=== PATIENT | male | born 1960 | race Caucasian/White ===

== ENCOUNTER 2022-01-15 10:55 | Outpatient (CLI) | payer OTHER, SELFPAY ==
[2022-01-15 14:06] LABS: Basophils Percent Auto 0.2 % (0.0-3.0); Hematocrit 42.1 % (37.0-53.0); Immature Granulocytes Pct Auto 0.2 %; Lymphocytes Percent Auto 9.8 % (20-44); Mean Corpuscular HGB Conc 33 gm/dL (32-36); Mean Corpuscular Hemoglobin 29 pg (26-34); Mean Corpuscular Volume 88 fL (80-100); Monocytes Percent Auto 7.1 % (0.0-11.0); Neutrophils Percent Auto 81.7 % (42.0-72.0); Platelet Count* 421 K/uL (140-440); Red Blood Count 4.78 m/uL (4.30-5.90); White Blood Count* 16.05 K/uL (4.50-11.00)
[2022-01-15 14:16] LABS: Slide Review Reflex No
== END 2022-01-15 10:56 | disposition home or self-care (01) ==
LOC: KYNREF 10:57
PROVIDERS: Visit Provider Nurse Practitioner Family
DX: R05.9 Cough, unspecified (principal)
CPT/HCPCS: 85025

== ENCOUNTER 2022-02-23 11:43 | Outpatient (CLI) | payer OTHER, SELFPAY ==
[2022-02-23 15:41] LABS: Albumin* 4.1 g/dL (3.3-5.0); Basophils Absolute Auto 0.04 K/uL (0.00-0.30); Basophils Percent Auto 0.6 % (0.0-3.0); Chloride* 108 mmol/L (96-114); Eosinophils Absolute Auto 0.25 K/uL (0.00-0.50); Eosinophils Percent Auto 3.8 % (0.0-7.0); Hematocrit 42.3 % (37.0-53.0); Hemoglobin* 14.2 gm/dL (13.5-17.5); Lymphocytes Absolute Auto 1.63 K/uL (0.90-2.90); Lymphocytes Percent Auto 25.1 % (20-44); Mean Corpuscular HGB Conc 34 gm/dL (32-36); Mean Corpuscular Hemoglobin 30 pg (26-34); Mean Corpuscular Volume 88 fL (80-100); Monocytes Percent Auto 7.7 % (0.0-11.0); Neutrophils Absolute Auto 4.08 K/uL (1.7-7.0); Neutrophils Percent Auto 62.8 % (42.0-72.0); Platelet Count* 313 K/uL (140-440); RDW Coefficient of Variation % 13.4 % (11.5-15.5); Red Blood Count 4.81 m/uL (4.30-5.90)
[2022-02-23 15:42] LABS: Potassium* 4.2 mmol/L (3.6-5.1); Sodium* 139 mmol/L (135-149)
[2022-02-23 15:44] LABS: Alkaline Phosphatase* 92 U/L (40-150); Aspartate Amino Transferase* 23 U/L (12-35); Bilirubin Total* 0.5 mg/dL (0.1-1.5); Blood Urea Nitrogen* 21 mg/dL (7-30); Carbon Dioxide* 23 mmol/L (20-32); Cholesterol* 233 mg/dL (90-199); Creatinine* 0.9 mg/dL (0.5-1.5); Estimated Glomerular Filt Rate 97 ml/min; Glucose* 98 mg/dL (60-115); Total Protein* 6.9 g/dL (6.0-8.3)
[2022-02-23 15:45] LABS: Alanine Aminotransferase* 26 U/L (4-50); Calcium* 9.2 mg/dL (8.4-10.6); HDL Cholesterol* 65 mg/dL (>=40); LDL Cholesterol Calculated 115 mg/dL (<100); Slide Review Reflex No; Triglycerides* 267 mg/dL (40-149)
== END 2022-02-23 11:44 | disposition home or self-care (01) ==
PROVIDERS: Visit Provider Nurse Practitioner Family
DX: R53.83 Other fatigue (principal); I10 Essential (primary) hypertension; Z13.6 Encounter for screening for cardiovascular disorders; R03.0 Elevated blood-pressure reading, without diagnosis of hypertension
CPT/HCPCS: 80053; 80061; 85025

== ENCOUNTER 2022-04-19 15:16 | Outpatient (CLI) | payer OTHER, SELFPAY ==
[2022-04-19 13:33] LABS: Cholesterol* 220 mg/dL (90-199)
[2022-04-19 13:34] LABS: HDL Cholesterol* 57 mg/dL (>=40); LDL Cholesterol Calculated 141 mg/dL (<100); Triglycerides* 110 mg/dL (40-149)
== END 2022-04-19 15:17 | disposition home or self-care (01) ==
PROVIDERS: Visit Provider Nurse Practitioner Family
DX: Z13.6 Encounter for screening for cardiovascular disorders (principal)
CPT/HCPCS: 80061

== ENCOUNTER 2023-07-26 10:13 | Outpatient (CLI) | payer OTHER, SELFPAY | END 2023-07-26 10:14 | disposition home or self-care (01) | PROVIDERS: PCP Nurse Practitioner Family; Visit Provider Nurse Practitioner Family | DX: Z00.00 Encounter for general adult medical examination without abnormal findings (principal); E78.5 Hyperlipidemia, unspecified; I10 Essential (primary) hypertension; Z12.5 Encounter for screening for malignant neoplasm of prostate; Z13.0 Encounter for screening for diseases of the blood and blood-forming organs and certain disorders involving the immune mechanism; Z13.6 Encounter for screening for cardiovascular disorders | CPT/HCPCS: 80053; 80061; 85025; G0103 ==

== ENCOUNTER 2023-10-11 07:47 | Outpatient (CLI) | payer OTHER, SELFPAY | END 2023-10-11 07:48 | disposition home or self-care (01) | PROVIDERS: PCP Nurse Practitioner Family; Visit Provider Nurse Practitioner Family | DX: E78.5 Hyperlipidemia, unspecified (principal); R74.01 Elevation of levels of liver transaminase levels | CPT/HCPCS: 80076 ==

== ENCOUNTER 2024-03-26 16:21 | Outpatient (CLI) | payer OTHER, SELFPAY | END 2024-03-26 16:22 | disposition home or self-care (01) | PROVIDERS: PCP Nurse Practitioner Family; Visit Provider Nurse Practitioner Family | DX: E78.5 Hyperlipidemia, unspecified (principal) | CPT/HCPCS: 80076 ==

== ENCOUNTER 2024-06-03 13:55 | Outpatient (CLI) | payer OTHER, SELFPAY ==
--- NOTE | 2024-06-03 14:30 | CRLHL7_ITS ---
For Patients: As a result of the 21st Century Cures Act, medical imaging exams and procedure reports are released immediately into your electronic medical record. You may view this report before your referring provider. If you have questions, please contact your health care provider. CLINICAL INDICATION: Right shoulder pain. COMPARISON IMAGING STUDIES: Radiographs from 05/07/2024. TECHNICAL: Non-contrast MRI of the right shoulder. Axial, sagittal oblique and coronal oblique T1, PD, PD FS, T2 and T2 FS images. 1.5 [facility] MR scanner. FINDINGS: GLENOHUMERAL JOINT: Effusion: Small to moderate joint effusion. There is synovitis. There is likely some debris within the subscapular recess. Humeral Head Articular Cartilage: Mild humeral head articular cartilage wear (grade 2). 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 Alignment: Maintained. Capsule: Areas of glenohumeral joint capsular edema. OSSEOUS STRUCTURES: No acute fracture or avascular necrosis. 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 A small amount of fluid is present within the synchondrosis. The acromiohumeral interval measures 5-6 mm. Coracohumeral interval measures 10 mm. ACROMIOCLAVICULAR JOINT REGION: AC joint degenerative arthrosis. Coracoclavicular ligament intact. BURSAE: Subacromial-subdeltoid bursal edema with trace bursal fluid. ROTATOR CUFF TENDONS AND MUSCLES AND DELTOID: Supraspinatus and Infraspinatus: The distal supraspinatus tendon is severely abnormal with high-grade undersurface tendon tearing over an approximately 1.6 centimeter anterior/posterior by similar medial/lateral extent. Focally, there is also indistinctness of bursal surface fibers and consequently there may be an area of full-thickness tendon fenestration. No supraspinatus muscle atrophy. Moderate infraspinatus tendinosis with an area of low-grade partial-thickness undersurface tendon tearing of the anterior distal tendon close to junction with supraspinatus. No infraspinatus muscle atrophy. Teres Minor: Distal tendon intact. Mild muscle atrophy. Subscapularis: Tendinosis and high-grade tearing of the superior 1.2 cm of the distal subscapularis tendon. No subscapularis muscle atrophy. Deltoid: No muscle atrophy or edema. BICEPS TENDON, LONG HEAD: Tendinosis and partial tearing of the long head of the biceps tendon. Slight medial subluxation of the tendon at the upper margin of the bicipital groove. Degenerative labral tearing extends to involve the biceps anchor. GLENOID LABRUM: Extensive degenerative labral tearing above and below the level of the equator. OTHER FINDINGS: There is no abnormality within the suprascapular or spinoglenoid notches nor within the quadrilateral space. No axillary adenopathy or mass. IMPRESSION: 1. High-grade partial-thickness undersurface supraspinatus tendon tearing with possible full-thickness tendon fenestration. No supraspinatus muscle atrophy. 2. Moderate distal infraspinatus tendinosis with lower grade partial-thickness undersurface tendon tearing anteriorly. 3. High-grade tearing of the distal subscapularis tendon superiorly. 4. Tendinosis and partial tearing of the long head of the biceps tendon. Slight medial subluxation of the tendon at the upper margin of the bicipital groove. 5. Glenohumeral joint degenerative arthrosis. Extensive labral tearing. 6. AC joint degenerative arthrosis. 7. 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 Dictated by Sergey Shaw MD @ 06/04/2024 10:45:43 AM (Electronically Signed)
== END 2024-06-03 13:56 | disposition home or self-care (01) ==
LOC: MRI 13:55
PROVIDERS: PCP Nurse Practitioner Family; Visit Provider Nurse Practitioner Family
DX: M25.511 Pain in right shoulder (principal); M75.101 Unspecified rotator cuff tear or rupture of right shoulder, not specified as traumatic; S46.911A Strain of unspecified muscle, fascia and tendon at shoulder and upper arm level, right arm, initial encounter; M19.011 Primary osteoarthritis, right shoulder
CPT/HCPCS: 73221